=== PATIENT | male | born 1975 | race Caucasian/White ===

== ENCOUNTER → 2016-06-19 | Outpatient (CLI) | payer SELFPAY | LOC: LAB 14:00 | DX: E11.9 Type 2 diabetes mellitus without complications (principal) ==

== ENCOUNTER → 2016-12-26 | Outpatient (CLI) | payer SELFPAY | LOC: RAD 09:47 | DX: M25.461 Effusion, right knee (principal); M17.11 Unilateral primary osteoarthritis, right knee ==

== ENCOUNTER → 2017-01-29 | Outpatient (CLI) | payer BC | LOC: LAB 08:31 | DX: E11.9 Type 2 diabetes mellitus without complications (principal) ==

== ENCOUNTER → 2017-04-30 | Outpatient (CLI) | payer SELFPAY | LOC: LAB 09:11 | DX: M1A.9XX0 Chronic gout, unspecified, without tophus (tophi) (principal); E11.9 Type 2 diabetes mellitus without complications ==

== ENCOUNTER → 2017-06-11 | Outpatient (CLI) | payer BC ==
[2017-06-11 09:57] LABS: ALBUMIN 4.4 g/dL (3.5-5.0); BUN/CREATININE RATIO 20.7 (6.0-26.0); CALCIUM 9.6 mg/dL (8.4-10.2); POTASSIUM 4.2 mmol/L (3.6-5.0); TOTAL BILIRUBIN 0.6 mg/dL (0.2-1.3); TOTAL PROTEIN 7.2 g/dL (6.3-8.2)
[2017-06-11 22:35] LABS: C-REACTIVE PROTEIN XXX
== END ==
LOC: LAB 09:21
PROVIDERS: Family Medicine
DX: M1A.9XX0 Chronic gout, unspecified, without tophus (tophi) (principal); I10 Essential (primary) hypertension; E11.9 Type 2 diabetes mellitus without complications

== ENCOUNTER → 2018-02-02 | Outpatient (CLI) | payer OTHER | LOC: LAB 08:50 | DX: E11.9 Type 2 diabetes mellitus without complications (principal) ==

== ENCOUNTER → 2018-06-17 | Outpatient (CLI) | payer OTHER ==
[2018-06-17 12:33] LABS: CALCIUM 9.8 mg/dL (8.4-10.2); POTASSIUM 4.3 mmol/L (3.6-5.0)
== END ==
LOC: LAB 12:13
PROVIDERS: Family Medicine
DX: E11.9 Type 2 diabetes mellitus without complications (principal); M1A.9XX0 Chronic gout, unspecified, without tophus (tophi)

== ENCOUNTER → 2018-09-21 | Outpatient (CLI) | payer OTHER | LOC: LAB 08:21 | DX: E11.9 Type 2 diabetes mellitus without complications (principal) ==

== ENCOUNTER → 2019-02-01 | Outpatient (CLI) | payer SELFPAY | LOC: LAB 07:42 | DX: E11.9 Type 2 diabetes mellitus without complications (principal) ==

== ENCOUNTER → 2019-10-31 | Outpatient (CLI) | payer SELFPAY | LOC: LAB 10:17 | DX: E11.9 Type 2 diabetes mellitus without complications (principal) ==

== ENCOUNTER → 2020-02-20 | Outpatient (CLI) | payer BC | LOC: LAB 10:16 | DX: E11.9 Type 2 diabetes mellitus without complications (principal) ==

== ENCOUNTER → 2020-10-15 | Outpatient (CLI) | payer BC ==
[2020-10-15 12:08] LABS: ALBUMIN 4.6 g/dL (3.5-5.0); POTASSIUM 4.4 mmol/L (3.5-5.1)
[2020-10-15 12:09] LABS: CALCIUM 9.7 mg/dL (8.3-10.5)
[2020-10-15 12:10] LABS: TOTAL PROTEIN 7.8 g/dL (6.4-8.3)
[2020-10-15 12:12] LABS: TOTAL BILIRUBIN 1.3 mg/dL (0.2-1.2)
== END ==
LOC: LAB 11:48
PROVIDERS: Family Medicine
DX: E11.9 Type 2 diabetes mellitus without complications (principal); I10 Essential (primary) hypertension